=== PATIENT | male | born 1945 | race Caucasian/White ===

== ENCOUNTER 2022-04-25 08:11 | Day surgery (SDC) | payer OTHER ==
[2022-04-19 14:59] VITALS: BMI 27.7
[2022-04-25 09:48] VITALS: PULSE 65; TEMP 97
[2022-04-25 10:00] VITALS: BP 108/65
== END 2022-04-25 10:16 | disposition home or self-care (01) ==
LOC: FASU-ENDO 08:11
PROVIDERS: ATTEND Internal Medicine Gastroenterology
PROC: 0DBL8ZX Excision of Transverse Colon, Via Natural or Artificial Opening Endoscopic, Diagnostic (ICD-10-PCS; 2022-04-25)
PROC: 0DBP8ZX Excision of Rectum, Via Natural or Artificial Opening Endoscopic, Diagnostic (ICD-10-PCS; principal; 2022-04-25 09:14)
DX: Z12.11 Encounter for screening for malignant neoplasm of colon (principal); D12.3 Benign neoplasm of transverse colon; D12.8 Benign neoplasm of rectum; K57.30 Diverticulosis of large intestine without perforation or abscess without bleeding; Z86.010 Personal history of colon polyps
CPT/HCPCS: 88305-TC

== ENCOUNTER 2022-06-20 11:35 | Inpatient (IN) | payer OTHER ==
[2022-06-20] MEDS ORDERED: ONDANSETRON 4 MG/2 ML VIAL IVPB ONE (11:52)
[2022-06-20] MEDS ORDERED: SODIUM CHLORIDE 1,000 ML IV ONE (11:52)
[2022-06-20] MEDS ORDERED: FAMOTIDINE 20 MG/50 ML IVPB 20 MG in PREMIX 50 IVPB ONE (12:08)
[2022-06-20] MEDS ORDERED: ONDANSETRON 4 MG/2 ML VIAL ONE (12:08)
[2022-06-20] MEDS ORDERED: FAMOTIDINE 20 MG/50 ML IVPB 20 MG/50 ML MG IVPB ONE (12:10)
[2022-06-20 12:35] LABS: HEMATOCRIT 48.1 % (35.4-49); HEMOGLOBIN 17.5 G/dL (11.7-16.9); MCHC 36.4 g/dl (32.0-35.9); MEAN CELL VOLUME 96.1 fl (80-96); PLATELET COUNT 207.3 10^3/uL (134-434); RDW 12.9 % (11.9-15.9); WHITE BLOOD COUNT 14.6 10^3/uL (4.0-10.8)
[2022-06-20 12:43] LABS: ALBUMIN 4.2 g/dl (3.4-5.0); CALCIUM 9.1 mg/dl (8.5-10); TOT PROT 7.1 g/dl (6.4-8.2)
[2022-06-20 12:46] LABS: PLATELET ESTIMATE ADEQUATE
[2022-06-20] MEDS ORDERED: CEFTRIAXONE 1 GM in DEXTROSE 5%-WATER - 50 ML IVPB ONE (16:32)
[2022-06-20] MEDS ORDERED: cefTRIAXone SODIUM 1 GM VIAL ONE (16:56)
[2022-06-20] MEDS ORDERED: ONDANSETRON 4 MG/2 ML VIAL IVPUSH PRN (17:11)
[2022-06-20] MEDS: FAMOTIDINE 20 MG/50 ML IVPB 20 MG/50 ML MG IVPB SCH (23:04)
[2022-06-21 03:31] VITALS: BMI 27.8
[2022-06-21] MEDS ORDERED: LACTATED RINGERS SOLUTION 1,000 ML/1,000 ML INFUS.BAG IV SCH (08:45)
[2022-06-21 09:14] LABS: ALBUMIN 3.7 g/dl (3.4-5.0); BILIRUBIN,TOTAL 1.1 mg/dl (0.2-1); CREATININE 1.1 mg/dl (0.55-1.3); TOT PROT 6.2 g/dl (6.4-8.2)
[2022-06-21] MEDS: FAMOTIDINE 20 MG/50 ML IVPB 20 MG/50 ML MG IVPB SCH ×2 (09:53→21:18)
[2022-06-21] MEDS: CEFTRIAXONE 1 GM in DEXTROSE 5%-WATER - 50 ML IVPB SCH (09:55)
[2022-06-21 10:23] LABS: BASO % 0.8 % (0-2.0); EOS % 1.5 % (0-4.5); HEMATOCRIT 45.9 % (35.4-49); HEMOGLOBIN 15.7 GM/dL (11.7-16.9); LYMPH % 17.8 % (8-40); MCH 32.9 pg (25.7-33.7); MCHC 34.3 g/dl (32.0-35.9); MEAN PLT VOLUME 10.9 fl (7.5-11.1); MONO % 12.5 % (3.8-10.2); NEUT % 67.4 % (42.8-82.8); PLATELET COUNT 189 10^3/uL (134-434); RBC 4.78 M/mm3 (4.00-5.60); RDW 13.3 % (11.9-15.9); WHITE BLOOD COUNT 7.5 K/mm3 (4.0-10.0)
[2022-06-22 08:51] LABS: ALBUMIN 3.4 g/dl (3.4-5.0); CALCIUM 8.8 mg/dl (8.5-10); CREATININE 1.1 mg/dl (0.55-1.3); TOT PROT 5.9 g/dl (6.4-8.2)
[2022-06-22] MEDS: CEFTRIAXONE 1 GM in DEXTROSE 5%-WATER - 50 ML IVPB SCH (09:24)
[2022-06-22] MEDS: FAMOTIDINE 20 MG/50 ML IVPB 20 MG/50 ML MG IVPB SCH ×2 (09:24→22:18)
[2022-06-22 09:49] LABS: HEMATOCRIT 44.2 % (35.4-49); HEMOGLOBIN 15.6 GM/dL (11.7-16.9); MCH 33.7 pg (25.7-33.7); MCHC 35.2 g/dl (32.0-35.9); MEAN CELL VOLUME 95.7 fl (80-96); MEAN PLT VOLUME 10.5 fl (7.5-11.1); PLATELET COUNT 180 10^3/uL (134-434); RBC 4.62 M/mm3 (4.00-5.60); RDW 13.3 % (11.9-15.9); WHITE BLOOD COUNT 7.5 K/mm3 (4.0-10.0)
[2022-06-22 10:08] LABS: BASO % 0.9 % (0-2.0); EOS % 2.1 % (0-4.5); LYMPH % 21.4 % (8-40); MONO % 11.8 % (3.8-10.2); NEUT % 63.8 % (42.8-82.8)
[2022-06-22] MEDS ORDERED: BUPIVACAINE HCL 50 ML ONE (12:45)
[2022-06-22] MEDS ORDERED: ROCURONIUM BROMIDE 50 MG/5 ML SYRINGE ONE (13:32)
[2022-06-22] MEDS ORDERED: PROPOFOL 20 ML ONE (13:32)
[2022-06-22] MEDS ORDERED: MIDAZOLAM HCL 2 MG/2 ML SINGLE DOSE VIAL ONE ×2 (13:32→13:44)
[2022-06-22] MEDS ORDERED: KETOROLAC TROMETHAMINE 30 MG/1 ML VIAL ONE (13:58)
[2022-06-22] MEDS ORDERED: ceFAZolin SODIUM 1 GM VIAL ONE (13:58)
[2022-06-22] MEDS ORDERED: DEXAMETHASONE SOD PHOSPHATE 4 MG/1 ML VIAL ONE (13:58)
[2022-06-22] MEDS ORDERED: ONDANSETRON 4 MG/2 ML VIAL ONE (13:58)
[2022-06-22] MEDS ORDERED: ePHEDrine SULFATE 50 MG/1 ML AMPULE ONE (14:07)
[2022-06-22] MEDS ORDERED: HYDROmorphone HCL/PF 1 MG/ML VIAL ONE (14:17)
[2022-06-22] MEDS ORDERED: BUPIVACAINE HCL/PF 0.25% (2.5MG/ML) 10 ML VIAL ONE (14:18)
[2022-06-22] MEDS ORDERED: BUPIVACAINE HCL 100 ML ONE (14:18)
[2022-06-22] MEDS ORDERED: NEOSTIGMINE METHYLSULFATE 0.5 MG/1 ML - 10 ML MDV ONE (15:55)
[2022-06-22] MEDS ORDERED: GLYCOPYRROLATE 0.2 MG/1 ML VIAL ONE (15:55)
[2022-06-22] MEDS ORDERED: ONDANSETRON 4 MG/2 ML VIAL IVPUSH PRN ×2 (16:22→16:55)
[2022-06-22] MEDS ORDERED: ACETAMINOPHEN 1000 MG/100 ML BAG IVPB ONE ×2 (16:23→16:28)
[2022-06-22] MEDS ORDERED: ACETAMINOPHEN INJECTION 100 ML IVPB ONE (16:24)
[2022-06-22] MEDS ORDERED: LACTATED RINGERS SOLUTION 1,000 ML IV SCH ×2 (16:30→16:55)
[2022-06-22] MEDS ORDERED: IBUPROFEN 600 MG TABLET (FP) PO PRN (16:55)
[2022-06-22] MEDS ORDERED: oxyCODONE HCL 5 MG TABLET PO PRN ×2 (16:55)
[2022-06-22] MEDS ORDERED: SODIUM CHLORIDE 0.9% 500 ML INFUS.BAG IV ONE (19:58)
[2022-06-22 20:22] LABS: HEMATOCRIT 46.3 % (35.4-49); HEMOGLOBIN 16.6 G/dL (11.7-16.9); MCH 34.8 pg (25.7-33.7); MCHC 35.9 g/dl (32.0-35.9); PLATELET COUNT 185.4 10^3/uL (134-434); RBC 4.77 10^6/uL (4.00-5.60); RDW 13.2 % (11.9-15.9); WHITE BLOOD COUNT 11.3 10^3/uL (4.0-10.8)
[2022-06-22] MEDS ORDERED: METOPROLOL TARTRATE 5 MG/5 ML VIAL IVPUSH ONE (20:23)
[2022-06-22] MEDS ORDERED: ASPIRIN 81 MG CHEWABLE TABLETS PO ONE (20:24)
[2022-06-22 20:33] LABS: ALBUMIN 3.4 g/dl (3.4-5.0); BILIRUBIN,TOTAL 0.8 mg/dl (0.2-1); CALCIUM 8.2 mg/dl (8.5-10); CREATININE 1.1 mg/dl (0.55-1.3)
[2022-06-22] MEDS: DOCUSATE SODIUM 100 MG CAPSULE (FP) PO SCH (22:18)
[2022-06-23] MEDS ORDERED: ACETAMINOPHEN 500 MG TABLET (FP) PO PRN (01:00)
[2022-06-23] MEDS ORDERED: METOPROLOL TARTRATE 5 MG/5 ML VIAL IVPUSH ONE (06:33)
[2022-06-23] MEDS: METOPROLOL TARTRATE 25 MG TABLET (FP) PO SCH ×3 (06:40→21:06)
[2022-06-23] MEDS: DOCUSATE SODIUM 100 MG CAPSULE (FP) PO SCH ×3 (06:40→21:06)
[2022-06-23 08:21] LABS: ALBUMIN 3.1 g/dl (3.4-5.0); BILIRUBIN,TOTAL 0.8 mg/dl (0.2-1); CALCIUM 8.4 mg/dl (8.5-10); CREATININE 1.1 mg/dl (0.55-1.3); TOT PROT 5.4 g/dl (6.4-8.2)
[2022-06-23] MEDS: FAMOTIDINE 20 MG/50 ML IVPB 20 MG/50 ML MG IVPB SCH ×2 (09:16→21:07)
[2022-06-23 11:45] LABS: HEMOGLOBIN 14.8 GM/dL (11.7-16.9); RBC 4.39 M/mm3 (4.00-5.60); WHITE BLOOD COUNT 9.5 K/mm3 (4.0-10.0)
[2022-06-23 11:46] LABS: BASO % 0.2 % (0-2.0); EOS % 0.1 % (0-4.5); HEMATOCRIT 42.2 % (35.4-49); LYMPH % 8.4 % (8-40); MCH 33.7 pg (25.7-33.7); MEAN CELL VOLUME 96.3 fl (80-96); NEUT % 83.3 % (42.8-82.8); PLATELET COUNT 189 10^3/uL (134-434); RDW 12.8 % (11.9-15.9)
[2022-06-23] MEDS: FINASTERIDE 5 MG TABLET (FP) PO SCH (12:19)
[2022-06-23] MEDS: TAMSULOSIN HCL 0.4 MG CAP PO SCH (12:19)
[2022-06-24] MEDS: DOCUSATE SODIUM 100 MG CAPSULE (FP) PO SCH ×2 (06:40→14:19)
[2022-06-24] MEDS: TAMSULOSIN HCL 0.4 MG CAP PO SCH (08:28)
[2022-06-24 10:32] VITALS: PULSE 70; RESP 16; TEMP 98
[2022-06-24] MEDS: FINASTERIDE 5 MG TABLET (FP) PO SCH (10:32)
[2022-06-24] MEDS: METOPROLOL TARTRATE 25 MG TABLET (FP) PO SCH (10:32)
[2022-06-24] MEDS: FAMOTIDINE 20 MG/50 ML IVPB 20 MG/50 ML MG IVPB SCH (10:35)
[2022-06-24] MEDS ORDERED: TAMSULOSIN HCL 0.4 MG CAP PO ONE (13:29)
[2022-06-24 14:16] VITALS: BP 144/64
[2022-06-24] MEDS ORDERED: APIXABAN 5 MG TABLET PO SCH (20:00)
== END 2022-06-24 14:40 | disposition home or self-care (01) | DRG 418 ==
LOC: FER 11:35 → FM/S 17:09
PROVIDERS: ADMIT Internal Medicine; ATTEND Nurse Practitioner Family
PROC: 0FT44ZZ Resection of Gallbladder, Percutaneous Endoscopic Approach (ICD-10-PCS; principal; 2022-06-24)
DX: K80.00 Calculus of gallbladder with acute cholecystitis without obstruction (principal); I97.191 Other postprocedural cardiac functional disturbances following other surgery; I10 Essential (primary) hypertension; L40.50 Arthropathic psoriasis, unspecified; R94.31 Abnormal electrocardiogram [ECG] [EKG]; K21.9 Gastro-esophageal reflux disease without esophagitis; E78.5 Hyperlipidemia, unspecified; N40.1 Benign prostatic hyperplasia with lower urinary tract symptoms; R33.8 Other retention of urine; R77.8 Other specified abnormalities of plasma proteins; Y83.8 Other surgical procedures as the cause of abnormal reaction of the patient, or of later complication, without mention of misadventure at the time of the procedure
CPT/HCPCS: 36415; 71045-TC-FY; 74177-TC; 76705-TC; 80053; 81003; 83690; 84484; 85025; 85027; 86850; 86900; 86901; 88304-TC; 93005; 93306-TC; 94760; 99285-25; C9803-CS; Q9967; U0003; U0005

== ENCOUNTER 2022-07-08 20:12 | Inpatient (IN) | payer OTHER ==
[2022-07-08] MEDS ORDERED: ONDANSETRON 4 MG/2 ML VIAL IVPB ONE (20:52)
[2022-07-08] MEDS ORDERED: SODIUM CHLORIDE 1,000 ML IV ONE (20:53)
[2022-07-08] MEDS ORDERED: ONDANSETRON 4 MG/2 ML VIAL ONE (20:55)
[2022-07-08 20:59] LABS: HEMOGLOBIN 15.8 G/dL (11.7-16.9); MCH 34.9 pg (25.7-33.7); MEAN CELL VOLUME 97.2 fl (80-96); MEAN PLT VOLUME 9.7 fl (7.5-11.1); PLATELET COUNT 245.9 10^3/uL (134-434); RBC 4.53 10^6/uL (4.00-5.60); RDW 13.7 % (11.9-15.9)
[2022-07-08] MEDS: SODIUM CHLORIDE 1,000 ML IV SCH (21:03)
[2022-07-08 21:07] LABS: ALBUMIN 3.9 g/dl (3.4-5.0); BILIRUBIN,TOTAL 3.4 mg/dl (0.2-1); CALCIUM 9.2 mg/dl (8.5-10); TOT PROT 6.7 g/dl (6.4-8.2)
[2022-07-08 21:38] LABS: PLATELET ESTIMATE ADEQUATE
[2022-07-08] MEDS ORDERED: VANCOMYCIN 1 GM in D5W (PRE-DOCKED) 1,000 MG/250 ML IVPB ONE (22:35)
[2022-07-08] MEDS ORDERED: PIPERACILLIN/TAZOB 3.375 GM 3.375 GM in DEXTROSE 5%-WATER - 50 ML IVPB ONE (22:38)
[2022-07-08] MEDS ORDERED: PIPERACILLIN/TAZOBACTAM 3.375 GM VIAL IVPB ONE (22:39)
[2022-07-09] MEDS: SODIUM CHLORIDE 1,000 ML IV SCH ×2 (05:00→17:39)
[2022-07-09 05:55] VITALS: BMI 38.5
[2022-07-09] MEDS: INSULIN SLIDING SCALE (NOVOLOG) 1 VIAL SQ SCH ×2 (07:00→11:20)
[2022-07-09] MEDS ORDERED: APIXABAN 5 MG TABLET PO SCH (08:00)
[2022-07-09] MEDS ORDERED: PIPERACILLIN/TAZOB 3.375 GM 3.375 GM in DEXTROSE 5%-WATER - 50 ML IVPB SCH (09:00)
[2022-07-09] MEDS: FINASTERIDE 5 MG TABLET (FP) PO SCH (10:30)
[2022-07-09] MEDS: TAMSULOSIN HCL 0.4 MG CAP PO SCH (10:30)
[2022-07-09] MEDS: METOPROLOL TARTRATE 25 MG TABLET (FP) PO SCH ×2 (10:30→23:20)
[2022-07-09] MEDS: PIPERACILLIN/TAZOB 3.375 GM 3.375 GM in DEXTROSE 5%-WATER - 50 ML IVPB SCH ×3 (11:23→22:13)
[2022-07-09 14:39] LABS: INR 1.19 (0.83-1.09); PROTHROMBIN TIME (PATIENT) 13.7 SEC (9.7-13.0)
[2022-07-09 14:40] LABS: BASO % 1.2 % (0-2.0); EOS % 3.4 % (0-4.5); HEMATOCRIT 41.7 % (35.4-49); HEMOGLOBIN 14.5 GM/dL (11.7-16.9); LYMPH % 20.2 % (8-40); MCH 33.5 pg (25.7-33.7); MCHC 34.9 g/dl (32.0-35.9); MEAN CELL VOLUME 96.2 fl (80-96); MEAN PLT VOLUME 10.1 fl (7.5-11.1); NEUT % 64.2 % (42.8-82.8); PLATELET COUNT 221 10^3/uL (134-434); RBC 4.34 M/mm3 (4.00-5.60); RDW 13.4 % (11.9-15.9); WHITE BLOOD COUNT 5.4 K/mm3 (4.0-10.0)
[2022-07-09 14:55] LABS: CALCIUM 8.6 mg/dL (8.5-10.1)
[2022-07-09 14:56] LABS: ALBUMIN 3.2 g/dl (3.4-5.0); BLOOD UREA NITROGEN 9.5 mg/dL (7-18); MAGNESIUM 2.2 mg/dL (1.8-2.4)
[2022-07-09 14:59] LABS: CREATININE 1.1 mg/dL (0.55-1.3); PHOSPHOROUS 2.6 mg/dL (2.5-4.9)
[2022-07-09 15:00] LABS: BILIRUBIN,TOTAL 2.8 mg/dL (0.2-1)
[2022-07-09 15:01] LABS: TOT PROT 5.9 g/dl (6.4-8.2)
[2022-07-09] MEDS ORDERED: ALPRAZolam 0.25 MG TABLET PO ONE (17:40)
[2022-07-09] MEDS: NYSTATIN POWDER 100,000 UNITS/GM - 15 GM TOPICAL POWDER TP SCH (22:13)
[2022-07-10] MEDS: PIPERACILLIN/TAZOB 3.375 GM 3.375 GM in DEXTROSE 5%-WATER - 50 ML IVPB SCH ×3 (02:55→16:59)
[2022-07-10 09:22] LABS: BASO % 0.9 % (0-2.0); EOS % 3.3 % (0-4.5); HEMATOCRIT 42.3 % (35.4-49); HEMOGLOBIN 14.8 GM/dL (11.7-16.9); LYMPH % 15.8 % (8-40); MCH 33.6 pg (25.7-33.7); MEAN PLT VOLUME 10.1 fl (7.5-11.1); MONO % 10.4 % (3.8-10.2); NEUT % 69.6 % (42.8-82.8); PLATELET COUNT 208 10^3/uL (134-434); RBC 4.41 M/mm3 (4.00-5.60); RDW 13.8 % (11.9-15.9); WHITE BLOOD COUNT 6.5 K/mm3 (4.0-10.0)
[2022-07-10 09:30] LABS: INR 1.16 (0.83-1.09); PROTHROMBIN TIME (PATIENT) 13.4 SEC (9.7-13.0)
[2022-07-10 09:43] LABS: CALCIUM 8.7 mg/dL (8.5-10.1)
[2022-07-10 09:44] LABS: ALBUMIN 3.2 g/dl (3.4-5.0); BLOOD UREA NITROGEN 11.5 mg/dL (7-18)
[2022-07-10 09:47] LABS: BILIRUBIN,DIRECT 0.8 mg/dL (0.0-0.2); CREATININE 1.1 mg/dL (0.55-1.3)
[2022-07-10 09:48] LABS: TOT PROT 5.8 g/dl (6.4-8.2)
[2022-07-10 09:49] LABS: BILIRUBIN,TOTAL 1.6 mg/dL (0.2-1)
[2022-07-10] MEDS: METOPROLOL TARTRATE 25 MG TABLET (FP) PO SCH ×2 (11:51→21:37)
[2022-07-10] MEDS: TAMSULOSIN HCL 0.4 MG CAP PO SCH (11:51)
[2022-07-10] MEDS: FINASTERIDE 5 MG TABLET (FP) PO SCH (11:52)
[2022-07-10] MEDS: NYSTATIN POWDER 100,000 UNITS/GM - 15 GM TOPICAL POWDER TP SCH (11:52)
[2022-07-10] MEDS: SODIUM CHLORIDE 1,000 ML IV SCH (16:53)
[2022-07-10] MEDS: APIXABAN 5 MG TABLET PO SCH (21:37)
[2022-07-11] MEDS: PIPERACILLIN/TAZOB 3.375 GM 3.375 GM in DEXTROSE 5%-WATER - 50 ML IVPB SCH ×2 (02:36→09:04)
[2022-07-11] MEDS: SODIUM CHLORIDE 1,000 ML IV SCH (09:04)
[2022-07-11] MEDS: TAMSULOSIN HCL 0.4 MG CAP PO SCH (09:05)
[2022-07-11] MEDS: APIXABAN 5 MG TABLET PO SCH (09:05)
[2022-07-11] MEDS: FINASTERIDE 5 MG TABLET (FP) PO SCH (09:05)
[2022-07-11] MEDS: METOPROLOL TARTRATE 25 MG TABLET (FP) PO SCH (09:05)
[2022-07-11] MEDS: NYSTATIN POWDER 100,000 UNITS/GM - 15 GM TOPICAL POWDER TP SCH (09:07)
[2022-07-11 11:07] LABS: EOS % 4.4 % (0-4.5); HEMATOCRIT 45.5 % (35.4-49); HEMOGLOBIN 15.2 GM/dL (11.7-16.9); LYMPH % 20.6 % (8-40); MCH 32.4 pg (25.7-33.7); MCHC 33.4 g/dl (32.0-35.9); MEAN CELL VOLUME 96.8 fl (80-96); MEAN PLT VOLUME 10.6 fl (7.5-11.1); MONO % 9.8 % (3.8-10.2); NEUT % 64.2 % (42.8-82.8); PLATELET COUNT 226 10^3/uL (134-434); RDW 13.6 % (11.9-15.9); WHITE BLOOD COUNT 5.1 K/mm3 (4.0-10.0)
[2022-07-11 11:29] LABS: BLOOD UREA NITROGEN 11.1 mg/dL (7-18); CALCIUM 8.6 mg/dL (8.5-10.1); MAGNESIUM 2.3 mg/dL (1.8-2.4)
[2022-07-11 11:30] LABS: ALBUMIN 3.3 g/dl (3.4-5.0)
[2022-07-11 11:32] LABS: CREATININE 1.1 mg/dL (0.55-1.3)
[2022-07-11 11:34] LABS: TOT PROT 6.2 g/dl (6.4-8.2)
[2022-07-11 13:50] VITALS: BP 142/76; PULSE 51; RESP 20; TEMP 97.8
[2022-07-11] MEDS ORDERED: AMOX TR/POT CLAV 875MG/125MG TABLETS (FP) PO SCH (17:30)
== END 2022-07-11 14:32 | disposition home or self-care (01) | DRG 392 ==
LOC: FER 20:12 → J7W 22:43
PROVIDERS: ADMIT Internal Medicine; ATTEND Nurse Practitioner Family
DX: K57.32 Diverticulitis of large intestine without perforation or abscess without bleeding (principal); R17 Unspecified jaundice; I10 Essential (primary) hypertension; R11.0 Nausea; R73.9 Hyperglycemia, unspecified; R74.01 Elevation of levels of liver transaminase levels; R94.5 Abnormal results of liver function studies; K21.9 Gastro-esophageal reflux disease without esophagitis; Z79.01 Long term (current) use of anticoagulants; I48.91 Unspecified atrial fibrillation; R33.9 Retention of urine, unspecified; E80.6 Other disorders of bilirubin metabolism; N40.0 Benign prostatic hyperplasia without lower urinary tract symptoms
CPT/HCPCS: 0241U-QW; 36415; 71045-TC-FY; 74177-TC; 74181-TC; 80053; 82150; 82248; 82550; 82962; 83036; 83605; 83690; 83735; 84100; 84484; 85025; 85610; 86140; 93005; 99285-25